=== PATIENT | female | born 1965 | race Caucasian/White ===

== ENCOUNTER 2016-11-24 02:14 | Emergency (ER) | payer OTHER ==
[2016-11-24 01:58] LABS: URINE SOURCE CLEAN CATCH
[2016-11-24 02:06] LABS: URINE APPEARANCE CLEAR; URINE BILIRUBIN NEG (NEG); URINE BLOOD NEG (NEG); URINE COLOR YELLOW; URINE GLUCOSE NEG (NEG); URINE KETONE NEG (NEG); URINE LEUKOCYTE ESTERASE NEG (NEG); URINE NITRATE NEG (NEG); URINE PROTEIN NEG (NEG); URINE SPECIFIC GRAVITY 1.012 (1.003-1.035); URINE UROBILINOGEN 0.2 MG/DL (NEG)
[2016-11-24 02:08] LABS: CULTURE INDICATED? NO
[~2016-11-24 02:14] MED LIST: ALBUTEROL17 GM INH; ALPRAZOLAM PO; BACLOFEN10 MG PO; BUSPAR; BUSPAR PO; CYMBALTA; CYMBALTA PO; DESYREL100 MG PO; FLEXERIL10 MG PO; GABAPENTIN300 M2 PO; HYDROCODON-ACE1 EACH PO; KEFLEX PO; KLONOPIN PO; KLONOPIN1 MG PO; LEVOTHYROXINE25 MC1 PO; LEVOTHYROXINE25 MCG PO; LISINOPRIL10 MG PO; LORTAB 10/500 T1 TAB PO; LORTAB 7.5-5001 TAB PO; MEDROL DOSEPAK4 MG; MEDROL DOSEPAK4 MG PO; MOBIC; MOBIC PO; MOTRIN400 M1 PO; NEURONTIN; NEURONTIN100 MG; NEURONTIN300 MG PO; NEURONTIN600 MG PO; PHENERGAN25 M1 PO; PREDNISONE10 MG/DOSE PO; ROBAXIN PO; SEROQUEL PO; SILVADENE TOP; SKELAXIN PO; SYNTHROID PO; TRAZODONE; TRAZODONE HCL100 MG PO; TYLENOL #3 PO; ZANAFLEX PO; ZITHROMAX PO; ZOFRAN ODT4 MG SL; ZOFRANODT SL; ZOLOFT; ZOLOFT PO; ZOLOFT100 MG PO
== END 2016-11-24 04:19 | disposition home or self-care (01) ==
LOC: CED 02:14
PROVIDERS: Nurse Practitioner
DX: M54.5 Low back pain (principal); I10 Essential (primary) hypertension; F41.9 Anxiety disorder, unspecified; F32.9 Major depressive disorder, single episode, unspecified; F17.210 Nicotine dependence, cigarettes, uncomplicated; Z90.710 Acquired absence of both cervix and uterus; Z79.899 Other long term (current) drug therapy; Z88.2 Allergy status to sulfonamides; Z88.8 Allergy status to other drugs, medicaments and biological substances
CPT/HCPCS: 81003; 99283